=== PATIENT | female | born 1955 | race Native Hawaiian/Other Pacific Islander ===

== ENCOUNTER 2016-09-13 03:14 | Emergency (ER) | payer OTHER ==
[2016-09-13 03:25] VITALS: BMI 32.9
[2016-09-13] MEDS ORDERED: Morphine 4 mg/ml ISec IVP STA (03:42)
[2016-09-13 03:45] VITALS: TEMP 98
[2016-09-13 04:18] LABS: BASO # 0.01 K/mm3 (0.0-2.0); BASO % 0.2 % (0.0-3.0); EOS # 0.1 (0.0-0.7); EOS % 2.1 % (1.5-5.0); GRAN # 3.76 (1.4-6.5); GRAN % 65.4 % (50.0-68.0); HEMOGLOBIN 10.6 gm/dL (12.0-16.0); LYMPH # 1.5 (1.2-3.4); MEAN CELL VOLUME 91.6 fL (80.0-105.0); MEAN CORPUSCULAR HEMOGLOBIN 30.6 pg (25.0-35.0); MEAN CORPUSCULAR HGB CONC 33.4 g/dl (31.0-37.0); MEAN PLATELET VOLUME 10.4 fl (7.0-11.0); MONO # 0.4 (0.1-0.6); MONO % 6.3 % (1.0-6.0); PLATELET COUNT 209 10^3/uL (120.0-450.0); RBC 3.46 10^6/uL (3.5-6.1); RED CELL DISTRIBUTION WIDTH 14.7 % (11.5-14.5); WHITE BLOOD COUNT 5.7 10^3/ul (4.5-11.0)
[2016-09-13 04:28] LABS: ALB/GLOB RATIO 1.2 (1.1-1.8); ALBUMIN 4.2 g/dL (3.0-4.8); ALT/SGPT 29 U/L (7-56); AST/SGOT 38 U/L (15-39); BLOOD UREA NITROGEN 21 mg/dL (7-21); CALCIUM 9.4 mg/dL (8.4-10.5); GFR AFRICAN-AMERICAN > 60; GFR NON-AFRICAN AMERICAN > 60; LIPASE 83 U/L (23-300)
--- NOTE | 2016-09-13 04:30 | ED PDOC ---
Arrival/HPI - General Chief Complaint: Abdominal Pain Time Seen by Provider: 09/13/16 03:41 Historian: Patient, Other (sister) - History of Present Illness Narrative History of Present Illness (Text): 09/13/16 04:31 A 61 year old female, whose past medical history includes diabetes, two previous strokes, and breast cancer s/p mastectomy, presents to the emergency department complaining of severe lower abdominal pain since yesterday. Patient' s sister translated. Patient lives in [place] and came to visit about 5 days ago. Patient also reports dizziness and headache that developed yesterday, similar to previous symptoms, which are currently resolved. Notes dysuria but denies any fever, vaginal bleeding, diarrhea, nausea, vomiting, constipation or any other complaints at this time. Time/Duration: Other (yesterday) Symptom Onset: Sudden Symptom Course: Unchanged Activities at Onset: Rest Context: Home Past Medical History - Provider Review Nursing Documentation Reviewed: Yes - Cardiac Hx MD: Yes Hx Hypertension: Yes - Pulmonary Hx Respiratory Disorders: No - Neurological Hx Neurological Disorder: No - HEENT Hx HEENT Disorder: No - Renal Hx Renal Disorder: No - Endocrine/Metabolic Hx Diabetes Mellitus Type 1: Yes Hx Diabetes Mellitus Type 2: Yes - Hematological/Oncological Hx Blood Disorders: No - Integumentary Hx Dermatological Disorder: No - Musculoskeletal/Rheumatological Hx Musculoskeletal Disorders: No - Gastrointestinal Hx Gastrointestinal Disorders: No - Genitourinary/Gynecological Hx Genitourinary Disorders: No - Psychiatric Hx Psychophysiologic Disorder: No Hx Substance Use: No Family/Social History - Physician Review Nursing Documentation Reviewed: Yes Family/Social History: No Known Family HX Smoking Status: Never Smoked Hx Alcohol Use: No Hx Substance Use: No Allergies/Home Meds Allergies/Adverse Reactions: Allergies No Known Allergies Allergy (Verified 09/13/16 03:26) Home Medications: Home Meds Medication Instructions Recorded Confirmed Allopurinol [Zyloprim] 300 mg PO DAILY 09/13/16 09/13/16 Atenolol 100 mg PO DAILY 09/13/16 09/13/16 Cholecalciferol (Vitamin D3) 5,000 unit PO DAILY 09/13/16 09/13/16 [Vitamin D3] Gabapentin 300 mg PO TID 09/13/16 09/13/16 Glimepiride [amaRYL] 4 mg PO BID 09/13/16 09/13/16 Letrozole 2.5 mg PO DAILY 09/13/16 09/13/16 MetFORMIN [glucoPHAGE] 1,000 mg PO BID 09/13/16 09/13/16 Simvastatin 40 mg PO DAILY 09/13/16 09/13/16 amLODIPine [Norvasc] 5 mg PO DAILY 09/13/16 09/13/16 hydroCHLOROthiazide [Hydrodiuril] 25 mg PO DAILY 09/13/16 09/13/16 Review of Systems - Physician Review All systems were reviewed & negative as marked: Yes - Review of Systems Constitutional: absent: Fevers Gastrointestinal: Abdominal Pain. absent: Constipation, Diarrhea, Nausea, Vomiting Genitourinary Female: Dysuria. absent: Vaginal Bleeding Physical Exam - Physical Exam Narrative Physical Exam (Text): 09/13/16 04:29 Constitutional: No acute distress. Head: Normocephalic. Atraumatic. Eyes: PERRL. ENT: Moist mucous membranes. Neck: Supple. Cardiovascular: Regular rate. Chest: No tenderness. Respiratory: Clear to auscultation bilaterally. GI: Diffuse abdominal tenderness with guarding, most suprapubic. No RLQ tenderness. Back: No CVA tenderness. Musculoskeletal: No tenderness or swelling of extremities. Skin: No rash. Neurologic: Alert, no focal deficit. Vital Signs Reviewed: Yes Vital Signs Temp Pulse Resp BP Pulse Ox 09/13/16 05:15 65 18 128/73 96 09/13/16 04:15 76 16 155/75 H 100 09/13/16 03:44 98.0 F 70 18 134/91 H 100 Temperature: Afebrile Blood Pressure: Hypertensive Pulse: Regular Respiratory Rate: Normal Appearance: Positive for: Well-Appearing, Non-Toxic, Comfortable Pain Distress: None Mental Status: Positive for: Alert and Oriented X 3 Medical Decision Making ED Course and Treatment: 09/13/16 04:28 Impression: A 61 year old female with lower abdominal pain. Differential Diagnosis included but are not limited to: Plan: -- CT abd/pelvis -- labs -- Urinalysis -- Morphine -- Reassess and disposition Progress Notes: CT Abdomen and Pelvis With Intravenous Contrast FINDINGS: Lower thorax: Trace bibasilar atelectasis. ABDOMEN: Liver: No acute findings. Gallbladder and bile ducts: The gallbladder is only minimally distended, without calcified stones. No significant intra- or extrahepatic biliary ductal dilation. Pancreas: Enhances homogeneously. No ductal dilation. No discrete mass. Spleen: No acute findings. Adrenals: No acute findings. Kidneys and ureters: No acute findings. No hydronephrosis or renal calculi. No discrete solid mass. PELVIS: Bladder: No acute findings. Reproductive: No acute findings. Appendix: The air filled appendix is of normal caliber . ABDOMEN and PELVIS: Stomach and bowel: A fat containing left inguinal hernia is present. Small bowel wall thickening but no surrounding inflammation or fluid to confirm an acute enteritis. Peritoneum: No significant fluid collection. No free air. Lymph nodes: No pathologically enlarged lymph nodes. Vasculature: Unremarkable. Bones: No acute fracture. IMPRESSION: Small bowel wall thickening but no surrounding inflammation or fluid to confirm an acute enteritis. Dictated and Authenticated by: Francoise Castro MD 09/13/2016 5:36 AM Eastern Time ([place] & [place]) Patient states she feels better. Will treat as UTI with antibiotics. F/u primary care, return to ER for worsening pain, fever, vomiting, dyspnea, flank pain, or any other problem. - Lab Interpretations Lab Results: 09/13/16 04:00 09/13/16 04:00 Lab Results 09/13/16 04:12: Urine Color Straw, Urine Appearance Clear, Urine pH 6.0, Ur Specific [place] 1.025, Urine Protein Negative, Urine Glucose (UA) Negative, Urine Ketones Trace H, Urine Blood Negative, Urine Nitrate Negative, Urine Bilirubin Negative, Urine Urobilinogen 0.2, Ur Leukocyte Esterase Small H, Urine RBC 5 - 10, Urine WBC 15 - 20, Ur Epithelial Cells 3 - 4, Urine Bacteria Mod, Urine Other Fiber 09/13/16 04:00: Sodium 141, Potassium 3.7, Chloride 105, Carbon Dioxide 23, Anion Gap 17, BUN 21, Creatinine 0.8, Est GFR ( Amer) > 60, Est GFR (Non- Af Amer) > 60, Random Glucose 172 H, Calcium 9.4, Total Bilirubin 0.5, AST 38, ALT 29, Alkaline Phosphatase 55, Total Protein 7.6, Albumin 4.2, Globulin 3.4, Albumin/Globulin Ratio 1.2, Lipase 83 09/13/16 04:00: WBC 5.7, RBC 3.46 L, Hgb 10.6 L, Hct 31.7 L, MCV 91.6, MCH 30.6 , MCHC 33.4, RDW 14.7 H, Plt Count 209, MPV 10.4, Gran % 65.4, Lymph % (Auto) 26.0, [place] % (Auto) 6.3 H, Eos % (Auto) 2.1, Baso % (Auto) 0.2, Gran # 3.76, Lymph # 1.5, [place] # 0.4, Eos # 0.1, Baso # 0.01 I have reviewed the lab results: Yes - RAD Interpretation Radiology Orders: 09/13/16 03:42 ABD & PELVIS IV CONTRAST ONLY [CT] Stat - Medication Orders Current Medication Orders: Discontinued Medications Iohexol (Omnipaque 350 100 Ml) Confirm Administered Dose 350 mg .ROUTE .STK-MED ONE Stop: 09/13/16 04:42 Morphine Sulfate (Morphine) 4 mg IVP STAT STA Stop: 09/13/16 03:43 Last Admin: 09/13/16 04:10 Dose: 4 mg Re-Assess: LENKA Pain Assessment Document 09/13/16 05:10 YP (Rec: 09/13/16 05:34 YP [id number]) Pain Reassessment Is this a pain reassessment? Yes Sleep Is patient sleeping during reassessment? Yes - Scribe Statement The provider has reviewed the documentation as recorded by the Tamela Costello Provider Scribe Attestation: All medical record entries made by the Scribe were at my direction and personally dictated by me. I have reviewed the chart and agree that the record accurately reflects my personal performance of the history, physical exam, medical decision making, and the department course for this patient. I have also personally directed, reviewed, and agree with the discharge instructions and disposition. Disposition/Present on Arrival - Present on Arrival Any Indicators Present on Arrival: No History of DVT/PE: No History of Uncontrolled Diabetes: No Urinary Catheter: No History of Decub. Ulcer: No History Surgical Site Infection Following: None - Disposition Have Diagnosis and Disposition been Completed?: Yes Diagnosis: UTI (urinary tract infection) Disposition: HOME/ ROUTINE Disposition Time: 05:44 Patient Plan: Discharge Condition: STABLE Discharge Instructions (ExitCare): Urinary Tract Infection in Women (ED) Prescriptions: Ciprofloxacin [Cipro] 500 mg PO BID #14 tab Ibuprofen [Motrin] 600 mg PO Q6 #25 tab
[2016-09-13 04:31] LABS: URINE BILIRUBIN NEGATIVE (NEGATIVE); URINE BLOOD NEGATIVE (NEGATIVE); URINE GLUCOSE (UA) NEGATIVE (NEGATIVE); URINE LEUKOCYTE ESTERASE SMALL Leu/uL (NEGATIVE); URINE NITRATE NEGATIVE (NEGATIVE); URINE PROTEIN NEGATIVE mg/dL (<30 mg/dL); URINE UROBILINOGEN 0.2 E.U./dL (<1 E.U./dL)
[2016-09-13 04:33] LABS: URINE APPEARANCE CLEAR (CLEAR); URINE COLOR STRAW (YELLOW)
[2016-09-13 04:41] LABS: URINE BACTERIA MOD (NEG); URINE WBC 15 - 20 /hpf (0-6)
[2016-09-13] MEDS ORDERED: Iohexol 350 MG/100 ML VIAL ONE (04:41)
[2016-09-13 05:31] VITALS: BP 128/73; PULSE 65; RESP 18; O2SAT 96
--- NOTE | 2016-09-13 05:36 | CT ---
EXAM: CT Abdomen and Pelvis With Intravenous Contrast CLINICAL HISTORY: 61 years old, female; Pain; Abdominal pain; Acute TECHNIQUE: Axial computed tomography images of the abdomen and pelvis with intravenous contrast. This CT exam was performed using one or more of the following dose reduction techniques: automated exposure control, adjustment of the mA and/or kV according to patient size, and/or use of iterative reconstruction technique. Coronal and sagittal reformatted images were created and reviewed. CONTRAST: 100 mL of OMNI 350 administered intravenously. COMPARISON: No relevant prior studies available. FINDINGS: Lower thorax: Trace bibasilar atelectasis. ABDOMEN: Liver: No acute findings. Gallbladder and bile ducts: The gallbladder is only minimally distended, without calcified stones. No significant intra- or extrahepatic biliary ductal dilation. Pancreas: Enhances homogeneously. No ductal dilation. No discrete mass. Spleen: No acute findings. Adrenals: No acute findings. Kidneys and ureters: No acute findings. No hydronephrosis or renal calculi. No discrete solid mass. PELVIS: Bladder: No acute findings. Reproductive: No acute findings. Appendix: The air filled appendix is of normal caliber . ABDOMEN and PELVIS: Stomach and bowel: A fat containing left inguinal hernia is present. Small bowel wall thickening but no surrounding inflammation or fluid to confirm an acute enteritis. Peritoneum: No significant fluid collection. No free air. Lymph nodes: No pathologically enlarged lymph nodes. Vasculature: Unremarkable. Bones: No acute fracture. IMPRESSION: Small bowel wall thickening but no surrounding inflammation or fluid to confirm an acute enteritis.
== END 2016-09-13 05:56 | disposition home or self-care (01) ==
LOC: ED 03:14
DX: N39.0 Urinary tract infection, site not specified (principal)
CPT/HCPCS: 74177; 80053; 81001; 83690; 85025; 87086; 96374; 99284; J2270; Q9967